=== PATIENT | male | born 1995 | race Caucasian/White ===

== ENCOUNTER 2018-12-01 18:15 | Emergency (ER) | payer OTHER ==
[2018-12-01] MEDS ORDERED: DIPHTH/TETANUS/ACEL. PERTUSSIS IM ONLY ONE (18:30)
[2018-12-01] MEDS ORDERED: fentaNYL CITR 100 MCG/2 ML AMP IVP ONE ×2 (18:30→23:50)
[2018-12-01] MEDS ORDERED: NS(*) 0.9% 1000 ML BAG 1,000 ML IV ONE (18:30)
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
[2018-12-01 18:38] LABS: PLATELET COUNT, AUTOMATED 351 K/uL (150-450)
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
[2018-12-01] MEDS ORDERED: IOPAMIDOL 76% 150 ML INFUS BTL 150 ML ONE (19:36)
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
[2018-12-01 23:50] VITALS: BP 107/64
== END 2018-12-01 23:55 | disposition short-term general hospital (02) ==
LOC: ER 19:30
DX: S22.009A Unspecified fracture of unspecified thoracic vertebra, initial encounter for closed fracture (principal); V89.2XXA Person injured in unspecified motor-vehicle accident, traffic, initial encounter; S00.03XA Contusion of scalp, initial encounter
CPT/HCPCS: 70450; 71045; 71260; 72125; 72129; 72132; 72170; 74177; 81001; 83605; 85025; 90471; 90715; 96361; 96374; 96376; 99285; J3010; J7030; Q9967; 82040; 82247; 82310; 82374; 82435; 82565; 82947; 84075; 84132; 84155; 84295; 84450; 84460; 84520

== ENCOUNTER → 2018-12-01 | Outpatient (CLI) | payer OTHER | LOC: AMB 16:57 | DX: M54.6 Pain in thoracic spine (principal); S00.81XA Abrasion of other part of head, initial encounter; V69.9XXA Occupant (driver) (passenger) of heavy transport vehicle injured in unspecified traffic accident, initial encounter | CPT/HCPCS: A0425; A0427 ==

== ENCOUNTER → 2018-12-01 | Outpatient (CLI) | payer OTHER | LOC: AMB 23:31 | DX: S22.089A Unspecified fracture of T11-T12 vertebra, initial encounter for closed fracture (principal); S32.019A Unspecified fracture of first lumbar vertebra, initial encounter for closed fracture | CPT/HCPCS: A0425; A0426 ==